=== PATIENT | female | born 1980 | race Caucasian/White ===

== ENCOUNTER 2018-09-05 05:37 | Day surgery (SDC) | payer MEDICAID ==
[~2018-09-05] VITALS: Ht 152.4 cm; Wt 72.6 kg
[2018-09-05] MEDS: LACTATED RINGERS 1,000 ML IV SCH ×2 (06:45→08:41)
[2018-09-05 06:52] LABS: BASOPHILS % 0.5 % (0.0-2.0); EOSINOPHILS % 2.2 % (0.0-5.0); HEMOGLOBIN. 12.2 g/dL (12.0-16.0); LYMPHOCYTES % 44.2 % (20.0-50.0); MEAN CORPUSCULAR HEMOGLOBIN 27.7 pg (28.0-32.0); MEAN CORPUSCULAR VOLUME 81.6 fL (81.0-99.0); MEAN PLATELET VOLUME 7.6 fl (7.4-10.4); MONOCYTES % 5.7 % (2.0-8.0); NEUTROPHILS % 47.4 % (40.0-76.0); PLATELET 380 x1000/uL (130-400); RED BLOOD CELL COUNT 4.41 mill/uL (4.2-5.4); RED CELL DISTRIBUTION WIDTH 14.4 % (11.6-14.6)
[2018-09-05] MEDS ORDERED: METHYLENE BLUE 50 MG/10 ML AMP IV ONE (06:53)
[2018-09-05] MEDS ORDERED: BUPIVACAINE HCL/PF 0.25% (2.5MG/ML) 10ML ONE (06:53)
[2018-09-05 06:54] LABS: CLARITY URINE CLEAR (CLEAR); COLOR URINE YELLOW (YELLOW); KETONES URINE NEGATIVE (NEGATIVE); LEUKOCYTE ESTERASE URINE TRACE (NEGATIVE); NITRITE URINE NEGATIVE (NEGATIVE); OCCULT BLOOD URINE NEGATIVE (NEGATIVE); PH URINE 5.5 (4.5-8.0); PROTEIN URINE NEGATIVE (NEGATIVE); SPECIFIC GRAVITY URINE 1.022 (1.005-1.030); UROBILINOGEN URINE 0.2 E.U./dL (0.2-1.0)
[2018-09-05] MEDS ORDERED: VASOPRESSIN 20 UNIT/ML 1ML ONE (06:54)
[2018-09-05 07:04] LABS: PARTIAL THROMBOPLASTIN TIME 27.9 sec (23.4-31.0)
[2018-09-05 07:10] LABS: UCG SCREEN NEGATIVE
[2018-09-05] MEDS ORDERED: FENTANYL CITRATE/PF 50MCG/ML 2ML VIAL ONE (07:29)
[2018-09-05] MEDS ORDERED: PROPOFOL 200MG/20ML VIAL IV ONE (07:29)
[2018-09-05] MEDS ORDERED: CEFAZOLIN SODIUM 1000MG/VIAL ONE (07:29)
[2018-09-05] MEDS ORDERED: MIDAZOLAM HCL 2 MG/2 ML VIAL ONE (07:29)
[2018-09-05] MEDS ORDERED: LIDOCAINE HCL/PF 1% 10 MG/ML 5ML VIAL ONE (07:29)
[2018-09-05] MEDS ORDERED: ROCURONIUM BROMIDE 10MG/ML VIAL 5ML IV ONE (07:34)
[2018-09-05 08:08] LABS: CHLORIDE 108 mEq/L (98-107)
[2018-09-05] MEDS ORDERED: SKIN ADHESIVE 0.7 GM EA TOP ONE (08:41)
[2018-09-05] MEDS ORDERED: NEOSTIGMINE METHYLSULFATE 1MG/ML 10 ML VIAL ONE (08:45)
[2018-09-05] MEDS ORDERED: GLYCOPYRROLATE 0.2 MG/ML 2ML VIAL ONE (08:45)
[2018-09-05] MEDS ORDERED: PROV10 IM (09:07)
[2018-09-05] MEDS ORDERED: HYDROCODONE/ACETAMINOPHEN 5/325MG TABLET PO PRN (09:15)
[2018-09-05] MEDS ORDERED: IBUPROFEN 800MG TABLET PO PRN (09:15)
[2018-09-05] MEDS ORDERED: KETOROLAC 30MG/ML VIAL IV PRN (09:15)
[2018-09-05] MEDS ORDERED: MEPERIDINE HCL/PF 25MG/ML CPJ IV PRN (09:15)
[2018-09-05 09:54] VITALS: BP 161/91
== END 2018-09-05 12:40 | disposition home or self-care (01) ==
LOC: OR 05:37
PROVIDERS: ATTEND Obstetrics & Gynecology
DX: Z64.1 Problems related to multiparity (principal)
CPT/HCPCS: 36415; 58670; 80048; 81003; 81025; 85025; 85610; 85730; J0690; J1885; J2175; J2250; J2704; J2710; J3010; J3490; C1725; Q9968